=== PATIENT | male | born 1930 | race African-American/Black ===

== ENCOUNTER 2021-05-07 09:04 | Inpatient (IN) | payer MEDICARE, OTHER ==
[~2021-05-07] VITALS: Ht 175.3 cm; Wt 52.6 kg
[2021-05-07 10:27] LABS: BASOPHILS % 0.9 % (0.0-2.0); EOSINOPHILS % 2.6 % (0.0-5.0); HEMATOCRIT. 44.7 % (42.0-52.0); HEMOGLOBIN. 15.1 g/dL (14.0-18.0); LYMPHOCYTES % 20.3 % (20.0-50.0); MEAN CORPUSCULAR HEMOGLOBIN 28.4 pg (28.0-32.0); MEAN CORPUSCULAR VOLUME 83.8 fL (80.0-94.0); MEAN PLATELET VOLUME 9.4 fl (7.4-10.4); MONOCYTES % 6.6 % (2.0-8.0); NEUTROPHILS % 69.6 % (40.0-76.0); PLATELET 208 x1000/uL (130-400); RED BLOOD CELL COUNT 5.33 mill/uL (4.7-6.1)
[2021-05-07 10:38] LABS: CHLORIDE 106 mEq/L (98-107)
[2021-05-07] MEDS ORDERED: NIFEDIPINE XL 90MG TAB PO ONE (11:00)
[2021-05-07 12:26] LABS: CREATINE KINASE 158 IU/L (39-308)
[2021-05-07 17:00] VITALS: BP 168/78
[2021-05-07] MEDS ORDERED: DOCUSATE SODIUM 100MG CAPSULE PO PRN (17:15)
[2021-05-07] MEDS ORDERED: ACETAMINOPHEN 325MG TABLET PO PRN (17:15)
[2021-05-07] MEDS: AMLODIPINE 10MG TABLET PO SCH (17:15)
[2021-05-07] MEDS: ASPIRIN 81MG TABLET PO NR ×2 (17:15→18:54)
[2021-05-07] MEDS ORDERED: ENOXAPARIN 40MG/0.4ML SYR SUBCUT SCH (17:30)
[2021-05-07] MEDS: CLONIDINE 0.1MG TABLET PO PRN (18:54)
[2021-05-07 19:58] VITALS: BP 108/59
[2021-05-07] MEDS: ATORVASTATIN CALCIUM 40MG TABLET PO SCH (20:33)
[2021-05-07] MEDS: HYDRALAZINE HCL 50MG TABLET PO SCH (21:01)
[2021-05-07] MEDS ORDERED: ASPI-1497 MT (21:29)
[2021-05-07] MEDS ORDERED: LOSA100T32 MT (21:29)
[2021-05-07] MEDS ORDERED: METO-411 MT (21:29)
[2021-05-07] MEDS ORDERED: TAMS-11 MT (21:29)
[2021-05-07] MEDS ORDERED: MEMA5TAB42 MT (21:29)
[2021-05-07] MEDS ORDERED: FOLI-43 MT (21:29)
[2021-05-07] MEDS ORDERED: LOVA40TA73 MT (21:29)
[2021-05-07] MEDS ORDERED: NIFE90TA60 MT (21:29)
[2021-05-07] MEDS ORDERED: PSYL0.4C2 PO (21:29)
[2021-05-07] MEDS ORDERED: MELO-106 MT (21:29)
[2021-05-07] MEDS ORDERED: QUET25TA MT (21:29)
[2021-05-07 23:32] VITALS: BP 114/42
[2021-05-08 03:45] VITALS: BP 115/48
[2021-05-08] MEDS: HYDRALAZINE HCL 50MG TABLET PO SCH ×3 (06:00→21:18)
[2021-05-08 07:09] LABS: BASOPHILS % 1.3 % (0.0-2.0); EOSINOPHILS % 3.1 % (0.0-5.0); HEMATOCRIT. 36.2 % (42.0-52.0); LYMPHOCYTES % 19.5 % (20.0-50.0); MEAN CORPUSCULAR HEMOGLOBIN 27.8 pg (28.0-32.0); MEAN CORPUSCULAR VOLUME 83.8 fL (80.0-94.0); MEAN PLATELET VOLUME 9.7 fl (7.4-10.4); MONOCYTES % 11.1 % (2.0-8.0); PLATELET 186 x1000/uL (130-400); RED BLOOD CELL COUNT 4.33 mill/uL (4.7-6.1); RED CELL DISTRIBUTION WIDTH 13.9 % (11.6-14.6)
[2021-05-08 08:00] VITALS: BP 119/62
[2021-05-08] MEDS: AMLODIPINE 10MG TABLET PO SCH (08:58)
[2021-05-08 12:00] VITALS: BP 133/55
[2021-05-08 16:00] VITALS: BP 116/57
[2021-05-08] MEDS ORDERED: LORAZEPAM 2MG/ML CPJ IM PRN (16:45)
[2021-05-08] MEDS: ENOXAPARIN 30MG/0.3ML SYR SUBCUT SCH (17:00)
[2021-05-08 20:00] VITALS: BP 147/62
[2021-05-08] MEDS: ATORVASTATIN CALCIUM 40MG TABLET PO SCH (21:17)
[2021-05-08 21:36] LABS: CLARITY URINE CLOUDY (CLEAR); COLOR URINE YELLOW (YELLOW); KETONES URINE TRACE (NEGATIVE); LEUKOCYTE ESTERASE URINE 3+ (NEGATIVE); NITRITE URINE NEGATIVE (NEGATIVE); OCCULT BLOOD URINE TRACE (NEGATIVE); PH URINE 5.5 (4.5-8.0); PROTEIN URINE 1+ (NEGATIVE); SPECIFIC GRAVITY URINE 1.021 (1.005-1.030); UROBILINOGEN URINE 0.2 E.U./dL (0.2-1.0)
[2021-05-09] VITALS: BP 121/67
[2021-05-09 04:00] VITALS: BP 134/72
[2021-05-09] MEDS: HYDRALAZINE HCL 50MG TABLET PO SCH ×2 (05:35→14:31)
[2021-05-09 07:19] LABS: BASOPHILS % 0.8 % (0.0-2.0); EOSINOPHILS % 2.8 % (0.0-5.0); HEMATOCRIT. 36.9 % (42.0-52.0); HEMOGLOBIN. 12.3 g/dL (14.0-18.0); LYMPHOCYTES % 20.7 % (20.0-50.0); MEAN CORPUSCULAR HEMOGLOBIN 28.2 pg (28.0-32.0); MEAN CORPUSCULAR VOLUME 84.5 fL (80.0-94.0); MEAN PLATELET VOLUME 9.8 fl (7.4-10.4); MONOCYTES % 13.4 % (2.0-8.0); NEUTROPHILS % 62.3 % (40.0-76.0); PLATELET 191 x1000/uL (130-400); RED BLOOD CELL COUNT 4.37 mill/uL (4.7-6.1); RED CELL DISTRIBUTION WIDTH 14.2 % (11.6-14.6)
[2021-05-09 07:39] LABS: CHLORIDE 108 mEq/L (98-107)
[2021-05-09 08:00] VITALS: BP 164/84
[2021-05-09] MEDS: AMLODIPINE 10MG TABLET PO SCH (09:19)
[2021-05-09 12:00] VITALS: BP 174/97
[2021-05-09] MEDS ORDERED: CEFTRIAXONE 1,000 MG in DEXTROSE 5% WATER 50 ML IV SCH (12:00)
[2021-05-09] MEDS: CLONIDINE 0.1MG TABLET PO PRN (12:12)
[2021-05-09] MEDS ORDERED: CEPH500T MT (13:32)
[2021-05-09 16:00] VITALS: BP 122/47
[2021-05-09 16:24] VITALS: BP 128/47
[2021-05-09] MEDS: ENOXAPARIN 30MG/0.3ML SYR SUBCUT SCH (17:00)
== END 2021-05-09 17:55 | disposition home or self-care (01) | DRG 689 ==
LOC: ER 09:04 → EDBEDREQSVC 11:41 → EDBEDREQ 11:41 → EDBEDREQTM 11:41 → 6WST 13:41 → EDBEDREQ 13:44 → EDBEDREQTM 13:44 → ENRESERV 14:09
PROVIDERS: ADMIT Internal Medicine Pulmonary Disease; ATTEND Internal Medicine Pulmonary Disease
DX: N39.0 Urinary tract infection, site not specified (principal); N17.0 Acute kidney failure with tubular necrosis; G93.41 Metabolic encephalopathy; F03.90 Unspecified dementia, unspecified severity, without behavioral disturbance, psychotic disturbance, mood disturbance, and anxiety; M16.11 Unilateral primary osteoarthritis, right hip; I10 Essential (primary) hypertension; Z85.46 Personal history of malignant neoplasm of prostate
CPT/HCPCS: 36415; 71045; 73552; 73590; 80048; 80053; 80061; 81003; 82550; 82962; 83605; 84145; 84443; 84484; 85025; 93005; 93306; 93880; 97161; 99285; J0696; J2060; J7060